=== PATIENT | male | born 1960 | race Caucasian/White ===

== ENCOUNTER 2021-04-17 08:29 | Day surgery (SDC) | payer OTHER ==
[~2021-04-17] VITALS: Ht 177.8 cm; Wt 96.2 kg
[~2021-04-17 08:29] MED LIST: DULOXETINE HCL30 MG PO; GABAPENTIN300 MG PO; LISINOPRIL10 MG PO; METFORMIN HCL500 M1 PO
--- NOTE | 2021-04-17 10:31 | NUR ---
04/17/21 1031 Alis Meraz 1023-PATIENT ARRIVED TO PACU ON 3L NC RR EVEN AWAKE DENIES PAIN OR NAUSEA. LAYING LEFT LATERAL. ABDOMEN SOFT. IVF INFUSING. 1025-PATIENT REPOSITIONED SELF TO BACK 1030-GLUCOSE 107 PATIENT AWAKE DENIES PAIN OR NAUSEA. 3L NC RR EVEN DENIES PAIN OR NAUSEA. HOB ELEVATED.
--- NOTE | 2021-04-18 06:04 | OR ---
[facility] [address], [place] [address] Signed DATE OF OPERATION: 04/17/2021 SURGEON: Vero Odell MD PREOPERATIVE DIAGNOSES: 1. Hyperplastic colonic polyps in 2010. 2. Maternal grandfather with possible colon cancer, but of prostate cancer. POSTOPERATIVE DIAGNOSIS: Minimal internal hemorrhoids. PROCEDURE: Colonoscopy without biopsy. ESTIMATED BLOOD LOSS: None. INDICATIONS: Clau is a 60-year-old gentleman, asked to see me for followup colonoscopy. I performed his colonoscopy in 2010 for right-sided abdominal pain. He had several small hyperplastic polyps removed. The rest of his evaluation had been negative. He is now retired and feeling much better. He told me his maternal grandfather may have had colon cancer but eventually of metastatic prostate cancer. Clau has no lower GI complaints currently. In the office, I gave him a pamphlet on colonoscopy and he recalls the nature of the test. We had reviewed the risk including, but not limited to gas bloating, crampy abdominal pain, bleeding, perforation requiring surgery, and missed diagnosis. We also discussed the need for IV conscious sedation. He had expressed understanding and wished to proceed. PROCEDURE NOTE: Clau was taken into our endoscopy suite and placed in the left lateral decubitus position. He was given IV sedation with 6 mg of Versed and 100 mcg of fentanyl. A digital rectal exam was performed and this was unremarkable. He has some mild induration and swelling to the prostate. He had good sphincter tone. The adult colonoscope was introduced and advanced under direct visualization of the camera. It took a little extra sedation and abdominal compression and moved the scope around hepatic flexure and down through the right colon into the cecum itself. His prep was quite excellent. We could easily see the appendiceal orifice and the ileocecal valve. I slowly withdrawn the scope. We took pictures throughout for photodocumentation. We found no evidence of any polyps or diverticula in his entire colon or rectum. Upon Electronically Signed By: VERO ODELL MD 04/18/21 0604 PATIENT NAME: CLAU ROWLAND OPERATIVE REPORT DATE OF : 60 REPORT #: [id number] PHYSICIAN: VERO ODELL MD PCP: JOHN ZULETA PA-C REPORT IS CONFIDENTIAL AND NOT TO BE RELEASED WITHOUT AUTHORIZATION [facility] [address], [place] [address] Signed retroflexion of the scope, he has a very tiny internal hemorrhoid tissue. After this, the gas was suctioned out and colonoscope removed. Clua tolerated the procedure quite well. RECOMMENDATIONS: Clau can follow up in 10 years for repeat colonoscopy. Vero Odell MD ALB/MODL /[id number] cc: Dr. John Odell MD Copies: VERO ODELL MD ~ Electronically Signed By: VERO ODELL MD 04/18/21 0604 PATIENT NAME: CLAU ROWLAND OPERATIVE REPORT DATE OF : 60 REPORT #: [id number] PHYSICIAN: VERO ODELL MD PCP: JOHN ZULETA PA-C REPORT IS CONFIDENTIAL AND NOT TO BE RELEASED WITHOUT AUTHORIZATION
== END 2021-04-17 11:25 | disposition home or self-care (01) ==
LOC: DS 08:29 → OPS 08:29 → DS 09:45 → OPS 09:45
PROVIDERS: ATTEND Colon & Rectal Surgery
PROC: 0DJD8ZZ Inspection of Lower Intestinal Tract, Via Natural or Artificial Opening Endoscopic (ICD-10-PCS; principal; 2021-04-17 09:45)
DX: Z09 Encounter for follow-up examination after completed treatment for conditions other than malignant neoplasm (principal); I10 Essential (primary) hypertension; K64.8 Other hemorrhoids; Z86.010 Personal history of colon polyps; Z80.0 Family history of malignant neoplasm of digestive organs
CPT/HCPCS: J2250; J3010; J7121